=== PATIENT | male | born 1985 | race Caucasian/White ===

== ENCOUNTER 2019-12-09 14:03 | Emergency (ER) | payer OTHER ==
[2019-12-09 14:22] VITALS: Wt 93.2 kg
[2019-12-09] MEDS ORDERED: CYCLOBENZAPRINE10 MG PO (14:43)
[2019-12-09] MEDS ORDERED: ORAL ANALGESIC9 GM TOPICAL (14:43)
[2019-12-09] MEDS ORDERED: ACETAMINOPHEN500 M1 PO (14:43)
[2019-12-09] MEDS ORDERED: KEFLEX500 MG PO (14:43)
[2019-12-09 15:18] LABS: HEMATOCRIT 44.6 % (42.0-54.0); HEMOGLOBIN 14.7 g/dL (13.5-17.5); LYMPHOCYTES 21.9 % (15-50); MCH 29.4 pg (26.0-34.0); MCV 89.2 fL (80.0-100.0); MEAN PLATELET VOLUME 8.7 fL (7.4-10.4); NEUTROPHILS 71.5 % (40-80); PLATELET COUNT 291 10x3/uL (130-400); RDW 12.2 % (11.5-14.5); WBC 10.7 10x3/uL (4.8-10.8)
[2019-12-09 15:24] LABS: CALC OSMOLALITY 275 mosm/kg (275-300); CALCIUM 8.7 mg/dL (8.5-10.1); CARBON DIOXIDE 27.8 mmol/L (21.0-32.0); CHLORIDE - SERUM 101 mmol/L (98-107); CREATININE - SERUM 0.9 mg/dL (0.6-1.3); GLUCOSE 85 mg/dL (74-106); POTASSIUM - SERUM 3.6 mmol/L (3.5-5.1); SODIUM 138 mmol/L (136-145); UREA NITROGEN 15 mg/dL (7-18); eGFR NON AFRICAN AMERICAN > 90 mL/min (90-120)
[2019-12-09 15:27] VITALS: BP 122/78
[2019-12-09 15:30] LABS: ALBUMIN 4.2 g/dL (3.4-5.0); ALKALINE PHOSPHATASE 89 U/L (30-120); ALT (SGPT) 25 U/L (10-68); BILIRUBIN - TOTAL 0.38 mg/dL (0.2-1.3); PROTEIN - SERUM 8.3 g/dL (6.4-8.2)
== END 2019-12-09 15:29 | disposition home or self-care (01) ==
LOC: D.ER 14:03
PROVIDERS: Family Medicine
DX: K02.9 Dental caries, unspecified (principal); K04.7 Periapical abscess without sinus; S02.5XXA Fracture of tooth (traumatic), initial encounter for closed fracture; Z76.0 Encounter for issue of repeat prescription

== ENCOUNTER 2020-10-06 22:11 | Emergency (ER) | payer OTHER ==
[~2020-10-06] VITALS: Ht 185.4 cm; Wt 93.0 kg
[~2020-10-06 22:11] MED LIST: ACETAMINOPHEN500 M1 PO; CYCLOBENZAPRINE10 MG PO; HYDROCODON-ACE1 EAC7 PO; KEFLEX500 MG PO; MILK OF MAGNESI30 ML PO; MIRALAX17 GM PO; ORAL ANALGESIC9 GM TOPICAL; PREDNISONE20 MG PO; SINGULAIR10 MG PO; SYMBICORT 16010.2 GM INH; ZANAFLEX4 MG PO; ZITHROMAX500 MG PO
[2020-10-06 22:17] VITALS: Ht 185.4 cm; Wt 93.0 kg
[2020-10-06] MEDS ORDERED: ELIQUIS5 MG PO (22:18)
[2020-10-06] MEDS ORDERED: NEURONTIN 300300 MG PO (22:18)
[2020-10-06 22:35] LABS: BASOPHILS 0.8 % (0-2); EOSINOPHILS 3.8 % (0-7); HEMATOCRIT 39.9 % (42.0-54.0); HEMOGLOBIN 13.6 g/dL (13.5-17.5); IMMATURE GRANULOCYTES 0.1 % (0-5); LYMPHOCYTE ABS# 3.59 10x3/uL (1.32-3.57); LYMPHOCYTES 42.7 % (15-50); MCH 30.4 pg (26.0-34.0); MCHC 34.1 g/dL (31.0-37.0); MCV 89.1 fL (80.0-100.0); MONOCYTES 5.5 % (2-11); NEUTROPHIL ABS# 3.96 10x3/uL (1.78-5.38); NEUTROPHILS 47.1 % (40-80); PLATELET COUNT 282 10x3/uL (130-400); RBC 4.48 10x6/uL (4.20-6.10); RDW 12.7 % (11.5-14.5); WBC 8.4 10x3/uL (4.8-10.8)
[2020-10-06 22:43] LABS: CALC OSMOLALITY 272 mosm/kg (275-300); CALCIUM 9.1 mg/dL (8.5-10.1); CARBON DIOXIDE 27.5 mmol/L (21.0-32.0); CHLORIDE - SERUM 102 mmol/L (98-107); GLUCOSE 94 mg/dL (74-106); INR 1.05 (0.85-1.17); POTASSIUM - SERUM 3.6 mmol/L (3.5-5.1); PROTIME 12.7 SECONDS (11.6-15.0); SODIUM 136 mmol/L (136-145); UREA NITROGEN 14 mg/dL (7-18); eGFR NON AFRICAN AMERICAN > 90 mL/min (90-120)
[2020-10-06 23:00] LABS: ALBUMIN 4.1 g/dL (3.4-5.0); ALKALINE PHOSPHATASE 87 U/L (30-120); ALT (SGPT) 22 U/L (10-68); BILIRUBIN - TOTAL 0.27 mg/dL (0.2-1.3); CKMB 0.3 U/L (0.0-3.6); CREATINE KINASE 120 UL (21-232); MAGNESIUM - SERUM 1.9 mg/dL (1.8-2.4); PROTEIN - SERUM 7.8 g/dL (6.4-8.2)
[2020-10-06 23:05] LABS: TROPONIN-I < 0.017 ng/mL (0.000-0.060)
[2020-10-07] MEDS ORDERED: OMEPRAZOLE40 MG PO (01:37)
[2020-10-07 02:22] VITALS: BP 132/82
== END 2020-10-07 02:24 | disposition home or self-care (01) ==
LOC: D.ER 22:11
PROVIDERS: Emergency Medicine
DX: R07.89 Other chest pain (principal); K21.9 Gastro-esophageal reflux disease without esophagitis